=== PATIENT | female | born 1945 | race Caucasian/White ===

== ENCOUNTER → 2016-06-24 | Outpatient (CLI) | payer OTHER ==
[~2016-06-24] MED LIST: IOPAMIDOL (ISOVUE-300) 100 ML BTL IV ONE
[2016-06-24 15:19] LABS: CREATININE 0.9 mg/dL (0.6-1.0); GLOMERULAR FILTRATION RATE > 60
--- NOTE | 2016-06-24 17:25 | CT ---
CT Abdomen and Pelvis, Without and With Contrast History: Gross hematuria, R31.0. Technique: Axial unenhanced images were obtained through the abdomen and pelvis. Axial contrast-enh anced images were obtained through the abdomen, with delayed images through the abdomen and pelvis fo llowing the uneventful intravenous administration of 110 mL Isovue-300. Creatinine is 0.9. Dose red uction techniques were utilized. Comparison: CT chest January 30, 2014. Findings Abdomen: The lung bases are clear. Heart size is normal. Right breast implant is incompletely visua lized. Subcentimeter hypodensities in the liver are not significantly changed since the comparison CT chest, better visualized with contrast, statistically likely to represent cysts. The gallbladder, spleen, pancreas, and adrenals are normal. There is a 2 mm calcification in the mid right kidney suggesting nonobstructing nephrolithiasis. There is a 2 mm stone in the proximal left ureter at the level of L3 , without significant obstructive uropathy, with mild prominence of the left renal pelvis. Subcentim eter hypodensities in the kidneys are too small to characterize, statistically likely to represent cy sts. On delayed images, there is left ureteral narrowing in the region of the stone, although contra st passes distal to the stone. Sigmoid diverticulosis is present, without evidence of diverticulitis. Moderate stool is present thr oughout the colon. The colon and small bowel are normal caliber, without evidence of obstruction. T here is no free fluid or air. The aorta is normal caliber, with mild atherosclerosis. The IVC, hepatic, portal, splenic, and super ior mesenteric veins are patent. A small fat-containing periumbilical hernia is present. Degenerative change is present in the spine, with annular bulges at L3-L4 and L4-L5, contributing to mild spinal canal narrowing. Pelvis: No filling defects are identified in the bladder. No bladder calcifications are present. N o pathologically enlarged lymph nodes are identified. No aggressive osseous lesions are identified. Impressions 1. 2-mm nonobstructing stone in the proximal left ureter. 2. Punctate nonobstructing right nephrolithiasis. 3. Constipation. 4. Diverticulosis, without evidence of diverticulitis. 5. Additional findings, as above.
== END ==
LOC: FIMAGING 14:25
PROVIDERS: ATTEND Specialist
DX: K57.30 Diverticulosis of large intestine without perforation or abscess without bleeding (principal); N20.1 Calculus of ureter; N20.0 Calculus of kidney; K59.00 Constipation, unspecified; M51.36 Other intervertebral disc degeneration, lumbar region; M51.86 Other intervertebral disc disorders, lumbar region
CPT/HCPCS: 74178; Q9967

== ENCOUNTER → 2017-04-13 | Outpatient (CLI) | payer OTHER | LOC: FIMAGING 09:56 | PROVIDERS: ATTEND Specialist | DX: R10.9 Unspecified abdominal pain (principal); M54.9 Dorsalgia, unspecified; Z87.442 Personal history of urinary calculi ==